=== PATIENT | female | born 1975 ===

== ENCOUNTER 2017-01-10 09:29 | Emergency (ER) | payer OTHER ==
[2017-01-10 09:35] VITALS: O2SAT 99; BMI 27.4
[2017-01-10 11:02] LABS: BASO % 0.7 % (0.0-2.0); EOS # 0.1 K/uL (0.0-0.7); EOS % 1.3 % (0.0-4.0); HEMOGLOBIN 12.7 g/dL (12.0-16.0); LYMPH # 2.3 K/uL (1.0-4.3); LYMPH % 33.3 % (20.0-40.0); MEAN CELL VOLUME 77.1 fl (81.0-99.0); MEAN CORPUSCULAR HEMOGLOBIN 25.1 pg (27.0-31.0); MEAN CORPUSCULAR HGB CONC 32.5 g/dL (33.0-37.0); MEAN PLATELET VOLUME 7.6 fl (7.2-11.7); MONO # 0.5 K/uL (0.0-0.8); MONO % 7.5 % (0.0-10.0); NEUT # 3.9 K/uL (1.8-7.0); NEUT % 57.2 % (50.0-75.0); NRBC % 0.1 % (0.0-0.0); RBC 5.08 Mil/uL (3.80-5.20); RED CELL DISTRIBUTION WIDTH 18.6 % (11.5-14.5); WHITE BLOOD COUNT 6.9 K/uL (4.8-10.8)
--- NOTE | 2017-01-10 11:17 | ED PDOC ---
HPI: Female Pain Time Seen by Provider: 01/10/17 10:06 Chief Complaint (Nursing): Female Genitourinary Chief Complaint (Provider): Right abdominal pain History Per: Patient History/Exam Limitations: no limitations Onset/Duration Of Symptoms: Days (x 3 days) Current Symptoms Are (Timing): Still Present Additional Complaint(s): Massiel Cerna is a 41-year-old female with a past medical history of hypertension and hysterectomy, who presents to the emergency department complaining of right-sided abdominal pain radiating to the back associated with dysuria, ongoing x3 days. Patient's is concerned she may have appendicitis after he "did research on the internet". Denies nausea, vomiting, diarrhea, and fever. PMD: Kris Leon MD Past Medical History Reviewed: Historical Data, Nursing Documentation, Vital Signs Vital Signs: Last Vital Signs Temp 97 F L 01/10/17 09:34 Pulse 71 01/10/17 09:34 Resp BP 144/77 01/10/17 09:34 Pulse Ox 99 01/10/17 09:34 - Medical History PMH: HTN - Surgical History Other surgeries: Hysterectomy - Family History Family History: States: Unknown Family Hx - Social History Current smoker - smoking cessation education provided: No Alcohol: None Drugs: Denies - Home Medications Home Medications: Ambulatory Orders Medication Instructions Recorded oxyCODONE/Acetaminophen [Percocet 1 tab PO Q6 PRN #8 tab 01/10/17 5/325 mg Tab] traMADol [Ultram] 50 mg PO TID PRN #12 tab 01/10/17 - Allergies Allergies/Adverse Reactions: Allergies Allergy/AdvReac Type Severity Reaction Status Date / Time No Known Allergies Allergy Verified 01/10/17 10:16 Review of Systems ROS Statement: Except As Marked, All Systems Reviewed And Found Negative Constitutional: Negative for: Fever Gastrointestinal: Positive for: Abdominal Pain (Right-sided pain radiating to the posterior back). Negative for: Nausea, Vomiting, Diarrhea Genitourinary Female: Positive for: Dysuria Musculoskeletal: Positive for: Back Pain Physical Exam - Reviewed Nursing Documentation Reviewed: Yes Vital Signs Reviewed: Yes - Physical Exam Appears: Positive for: Well, Non-toxic, No Acute Distress Head Exam: Positive for: ATRAUMATIC, NORMAL INSPECTION, NORMOCEPHALIC Skin: Positive for: Normal Color, Warm, Dry Eye Exam: Positive for: EOMI, Normal appearance, PERRL Neck: Positive for: Normal, Painless ROM, Supple Cardiovascular/Chest: Positive for: Regular Rate, Rhythm. Negative for: Murmur Respiratory: Positive for: Normal Breath Sounds. Negative for: Accessory Muscle Use, Respiratory Distress Gastrointestinal/Abdominal: Positive for: Soft, Tenderness (To the right lower quadrant), Other (old laparoscopic surgical scars ). Negative for: Normal Exam Neurologic/Psych: Positive for: Alert, Oriented - Laboratory Results Result Diagrams: 01/10/17 10:57 01/10/17 10:57 - ECG O2 Sat by Pulse Oximetry: 99 (RA) Pulse Ox Interpretation: Normal Medical Decision Making Medical Decision Making: Time: 10:45 Initial impression: Abdominal pain, UTI/pyelonephritis vs atypical appendicitis Initial plan: ---CMP ---Lipase ---CBC ---Urine culture ---Urinalysis ---CT abdomen/pelvis IV contrast ---Reassessment Time: 13:20 --CT Abdomen/Pelvis IV Contrast FINDINGS: LOWER THORAX: There is dependent atelectasis in the lung bases. LIVER: The liver is normal in size and there is homogeneous enhancement with diffuse low-attenuation. No intra hepatic biliary ductal dilatation. There is a 14 mm low-attenuation lesion in the anterior left hepatic lobe. GALLBLADDER AND BILE DUCTS: There are no calcified gallstones. PANCREAS: The pancreas is normal in size and there is homogeneous enhancement without focal mass or ductal dilatation. SPLEEN: Normal in size without focal lesion. ADRENALS: Both adrenal glands are normal in size without discrete nodule. KIDNEYS AND URETERS: Both kidneys are normal in size and there is homogeneous enhancement without hydronephrosis or focal mass. VASCULATURE: Normal in appearance. No aortic aneurysm. BOWEL: The small bowel loops are normal in caliber. There is large amount of stool in the colon. No evidence of bowel dilatation or obstruction. APPENDIX: Normal appendix. PERITONEUM: No free fluid. No free air. LYMPH NODES: No enlarged lymph nodes. BLADDER: Unremarkable. REPRODUCTIVE: The uterus is surgically absent. There is a 5.0 x 5.6 cm septated cyst in the right ovary. BONES: No acute fracture. OTHER FINDINGS: None. IMPRESSION: 1. 5.0 x 5.6 cm septated cyst in the right ovary. 2. Hepatic steatosis and 14 mm cystic lesion in the anterior left hepatic lobe which could represent a hemangioma or complicated cyst, however neoplasm is not entirely excluded. A dedicated right upper quadrant ultrasound is recommended for further evaluation. 3. Constipation. No evidence of bowel obstruction. Time: 14:02 --Abdomen Limited (US) --Pelvis/Transvag US Time: 16:26 --Abdomen US FINDINGS: LIVER: Measures 13.5 cm in length. There is mild diffuse increased echogenicity of the liver parenchyma. There is a 14 x 12 x 14 mm well-circumscribed round hypoechoic lesion in the anterior left hepatic lobe. There is no central flow on color Doppler imaging. . No intrahepatic bile duct dilatation. GALLBLADDER: Unremarkable. No gallstones. COMMON BILE DUCT: Measures 3.1 mm. No stones. No dilatation. PANCREAS: Unremarkable as visualized. No mass. No ductal dilatation. RIGHT KIDNEY: Measures 11.9 cm in length. Normal echogenicity. No calculus, mass, or hydronephrosis. AORTA: No aneurysmal dilatation. IVC: Unremarkable. OTHER FINDINGS: None . IMPRESSION: 1. Hepatic steatosis. 2. 14 mm rounded lesion in the left hepatic lobe which does not demonstrate sonographic features of hemangioma or simple cyst. Finding could represent an adenoma or focal nodular hyperplasia. A CT/ MRI of the liver without and with intravenous contrast with liver protocol would be the imaging modality of choice for definitive characterization. Time: 16:31 --Pelvic US FINDINGS: UTERUS: Status post partial hysterectomy. CERVIX: No cervical abnormality identified. RIGHT OVARY: Enlarged and measures 7.5 x 4.3 x 6.3 cm. No solid mass. Normal flow. There is a 6.3 x 3.8 x 4.8 cm cyst in the right ovary. No central flow on color Doppler imaging. LEFT OVARY: Measures 2.7 x 1.7 x 2.3 cm. No solid mass. Normal flow. FREE FLUID: No significant free fluid noted. OTHER FINDINGS: None. IMPRESSION: 6.3 cm simple cyst in the right ovary. Follow-up ultrasound in 3-6 months interval is recommended to assess stability/ resolution. Time: 16:43 Upon provider reevaluation patient is feeling better, is medically stable, and requires no further treatment in the ED at this time. Patient will be discharged home with Rx for Percocet 5/325 mg and Tramadol 50 mg. Counseling was provided and all questions were answered regarding diagnosis and need for follow up with Dr. Juan Reyes MD and Dr. Juventino Gaspar MD. There is agreement to discharge plan. Return if symptoms persist or worsen. Clinical Impression: Ovarian Cyst and Liver lesion Scribe Attestation: Documented by Ro Peacock, acting as a scribe for Juventino Cano MD. Provider Scribe Attestation: All medical record entries made by the Scribe were at my direction and personally dictated by me. I have reviewed the chart and agree that the record accurately reflects my personal performance of the history, physical exam, medical decision making, and the department course for this patient. I have also personally directed, reviewed, and agree with the discharge instructions and disposition. Disposition - Clinical Impression Clinical Impression: Ovarian cyst, Liver lesion Counseled Patient/Family Regarding: Diagnosis, Need For Followup, Rx Given - Disposition Referrals: Juan Reyes MD [Staff Provider] - Juventino Gaspar MD, PhD [Staff Provider] - Disposition: Routine/Home Disposition Time: 16:43 Condition: STABLE Additional Instructions: See Dr Reyes for further testing on your ovarian cyst. You may need surgery for this. Return to ER for any worse or new symptoms. See PMD or GI specialist for testing on liver cyst, you will need a dedicated scan of the liver to rule-out more serious pathology. Bring this to your PMD: Accession No. : [id number] Patient Name / ID : JOHN SANFORD / [id number] Exam Date : 01/10/2017 15:34:20 ( Approved ) Study Comment : Sex / Age : F / 41Y Creator : Radha Kamara MD Dictator : Radha Kamara MD Transmission Tester : Mechanical Maintenance Technician : Radha Kamara MD Approver2 : Report Date : 01/10/2017 16:26:31 My Comment : HISTORY: lesion on CT in liver COMPARISON: CT abdomen performed the same day. TECHNIQUE: Grayscale imaging was performed. FINDINGS: LIVER: Measures 13.5 cm in length. There is mild diffuse increased echogenicity of the liver parenchyma. There is a 14 x 12 x 14 mm well-circumscribed round hypoechoic lesion in the anterior left hepatic lobe. There is no central flow on color Doppler imaging. . No intrahepatic bile duct dilatation. GALLBLADDER: Unremarkable. No gallstones. COMMON BILE DUCT: Measures 3.1 mm. No stones. No dilatation. PANCREAS: Unremarkable as visualized. No mass. No ductal dilatation. RIGHT KIDNEY: Measures 11.9 cm in length. Normal echogenicity. No calculus, mass, or hydronephrosis. AORTA: No aneurysmal dilatation. IVC: Unremarkable. OTHER FINDINGS: None . IMPRESSION: 1. Hepatic steatosis. 2. 14 mm rounded lesion in the left hepatic lobe which does not demonstrate sonographic features of hemangioma or simple cyst. Finding could represent an adenoma or focal nodular hyperplasia. A CT/ MRI of the liver without and with intravenous contrast with liver protocol would be the imaging modality of choice for definitive characterization. Prescriptions: oxyCODONE/Acetaminophen [Percocet 5/325 mg Tab] 1 tab PO Q6 PRN #8 tab PRN Reason: Pain, Severe (8-10) traMADol [Ultram] 50 mg PO TID PRN #12 tab PRN Reason: Pain, Moderate (4-7) Instructions: Ovarian Cyst (ED) Forms: [employer] ([place]ian)
[2017-01-10 11:32] LABS: ALB/GLOB RATIO 1.2 (1.0-2.1); ALBUMIN 4.1 g/dL (3.5-5.0); ALT/SGPT 42 U/L (9-52); AST/SGOT 24 U/L (14-36); BLOOD UREA NITROGEN 14 mg/dl (7-17); GFR AFRICAN-AMERICAN > 60; GFR NON-AFRICAN AMERICAN > 60; LIPASE 59 U/L (23-300)
[2017-01-10 12:03] LABS: SQUAMOUS EPITHIAL 4 /hpf (0-5); URINE BACTERIA RARE (<OCC); URINE BILIRUBIN NEGATIVE (NEGATIVE); URINE BLOOD NEGATIVE (NEGATIVE); URINE CLARITY CLEAR (Clear); URINE COLOR YELLOW (YELLOW); URINE GLUCOSE (UA) NEG (Normal); URINE LEUKOCYTE ESTERASE NEG Leu/uL (Negative); URINE NITRATE NEGATIVE (NEGATIVE); URINE PROTEIN NEGATIVE (NEGATIVE); URINE UROBILINOGEN 0.2-1.0 mg/dL (0.2-1.0)
[2017-01-10] MEDS ORDERED: Iohexol 300 100 ML IJ ONE (12:49)
[2017-01-10] MEDS ORDERED: Sodium Chloride 0.9% 50 ML IV ONE (12:49)
--- NOTE | 2017-01-10 13:55 | CT ---
PROCEDURE: CT Abdomen and Pelvis with contrast HISTORY: RLQ pain COMPARISON: None. TECHNIQUE: CT scan of the abdomen and pelvis was performed after intravenous administration of contrast. Oral contrast was not administered. Coronal and sagittal reformatted images were obtained. Contrast dose: 95 mL Omnipaque 300 Radiation dose: Total exam DLP = 666.91 mGy-cm. This CT exam was performed using one or more of the following dose reduction techniques: Automated exposure control, adjustment of the mA and/or kV according to patient size, and/or use of iterative reconstruction technique. FINDINGS: LOWER THORAX: There is dependent atelectasis in the lung bases. LIVER: The liver is normal in size and there is homogeneous enhancement with diffuse low-attenuation. No intra hepatic biliary ductal dilatation. There is a 14 mm low-attenuation lesion in the anterior left hepatic lobe. GALLBLADDER AND BILE DUCTS: There are no calcified gallstones. PANCREAS: The pancreas is normal in size and there is homogeneous enhancement without focal mass or ductal dilatation. SPLEEN: Normal in size without focal lesion. ADRENALS: Both adrenal glands are normal in size without discrete nodule. KIDNEYS AND URETERS: Both kidneys are normal in size and there is homogeneous enhancement without hydronephrosis or focal mass. VASCULATURE: Normal in appearance. No aortic aneurysm. BOWEL: The small bowel loops are normal in caliber. There is large amount of stool in the colon. No evidence of bowel dilatation or obstruction. APPENDIX: Normal appendix. PERITONEUM: No free fluid. No free air. LYMPH NODES: No enlarged lymph nodes. BLADDER: Unremarkable. REPRODUCTIVE: The uterus is surgically absent. There is a 5.0 x 5.6 cm septated cyst in the right ovary. BONES: No acute fracture. OTHER FINDINGS: None. IMPRESSION: 1. 5.0 x 5.6 cm septated cyst in the right ovary. 2. Hepatic steatosis and 14 mm cystic lesion in the anterior left hepatic lobe which could represent a hemangioma or complicated cyst, however neoplasm is not entirely excluded. A dedicated right upper quadrant ultrasound is recommended for further evaluation. 3. Constipation. No evidence of bowel obstruction.
--- NOTE | 2017-01-10 16:27 | US ---
HISTORY: lesion on CT in liver COMPARISON: CT abdomen performed the same day. TECHNIQUE: Grayscale imaging was performed. FINDINGS: LIVER: Measures 13.5 cm in length. There is mild diffuse increased echogenicity of the liver parenchyma. There is a 14 x 12 x 14 mm well-circumscribed round hypoechoic lesion in the anterior left hepatic lobe. There is no central flow on color Doppler imaging. . No intrahepatic bile duct dilatation. GALLBLADDER: Unremarkable. No gallstones. COMMON BILE DUCT: Measures 3.1 mm. No stones. No dilatation. PANCREAS: Unremarkable as visualized. No mass. No ductal dilatation. RIGHT KIDNEY: Measures 11.9 cm in length. Normal echogenicity. No calculus, mass, or hydronephrosis. AORTA: No aneurysmal dilatation. IVC: Unremarkable. OTHER FINDINGS: None . IMPRESSION: 1. Hepatic steatosis. 2. 14 mm rounded lesion in the left hepatic lobe which does not demonstrate sonographic features of hemangioma or simple cyst. Finding could represent an adenoma or focal nodular hyperplasia. A CT/ MRI of the liver without and with intravenous contrast with liver protocol would be the imaging modality of choice for definitive characterization.
--- NOTE | 2017-01-10 16:33 | US ---
HISTORY: R ovarian cyst r/o torsion COMPARISON: None available. TECHNIQUE: Transabdominal pelvic ultrasound was performed. FINDINGS: UTERUS: Status post partial hysterectomy. CERVIX: No cervical abnormality identified. RIGHT OVARY: Enlarged and measures 7.5 x 4.3 x 6.3 cm. No solid mass. Normal flow. There is a 6.3 x 3.8 x 4.8 cm cyst in the right ovary. No central flow on color Doppler imaging. LEFT OVARY: Measures 2.7 x 1.7 x 2.3 cm. No solid mass. Normal flow. FREE FLUID: No significant free fluid noted. OTHER FINDINGS: None. IMPRESSION: 6.3 cm simple cyst in the right ovary. Follow-up ultrasound in 3-6 months interval is recommended to assess stability/ resolution.
[2017-01-10 17:19] VITALS: BP 130/78; PULSE 70; RESP 18; TEMP 98.2
== END 2017-01-10 17:20 | disposition home or self-care (01) ==
LOC: H.ER 09:29
DX: N83.201 Unspecified ovarian cyst, right side (principal); K76.0 Fatty (change of) liver, not elsewhere classified

== ENCOUNTER 2017-01-14 11:03 | Observation (INO) | payer OTHER ==
[2017-01-14] MEDS ORDERED: Sodium Chloride 0.9% 1,000 ML IV STA (11:13)
--- NOTE | 2017-01-14 11:17 | ED PDOC ---
HPI: General Adult Time Seen by Provider: 01/14/17 11:12 History Per: Patient Additional Complaint(s): Referred by PMD outpt w/u revealed ovarian cyst. For OR to assess cyst. C/o pelvic pain Past Medical History Vital Signs: Last Vital Signs Temp 98.8 F 01/14/17 11:12 Pulse 75 01/14/17 11:12 Resp 19 01/14/17 11:12 BP 128/86 01/14/17 11:12 Pulse Ox 98 01/14/17 11:12 - Medical History PMH: HTN - Family History Family History: States: Unknown Family Hx - Home Medications Home Medications: Ambulatory Orders Medication Instructions Recorded oxyCODONE/Acetaminophen [Percocet 1 tab PO Q6 PRN #8 tab 01/10/17 5/325 mg Tab] traMADol [Ultram] 50 mg PO TID PRN #12 tab 01/10/17 - Allergies Allergies/Adverse Reactions: Allergies Allergy/AdvReac Type Severity Reaction Status Date / Time No Known Allergies Allergy Verified 01/10/17 10:16 Review of Systems Constitutional: Negative for: Fever Gastrointestinal: Positive for: Abdominal Pain Genitourinary Female: Positive for: Pelvic Pain Physical Exam - Physical Exam Appears: Positive for: Non-toxic, No Acute Distress Skin: Positive for: Normal Color, Warm, DRY Cardiovascular/Chest: Positive for: Regular Rate, Rhythm Respiratory: Positive for: CNT, Normal Breath Sounds Gastrointestinal/Abdominal: Positive for: Bowel Sounds, Soft, Tenderness Extremity: Positive for: Normal ROM - ECG O2 Sat by Pulse Oximetry: 98 Disposition - Clinical Impression Clinical Impression: Ovarian cyst - Patient ED Disposition Is Patient to be Admitted: Yes - Disposition Disposition Time: 11:17 Condition: FAIR - Pt Status Changed To: Hospital Disposition Of: Observation - POA Present On Arrival: None
[2017-01-14 11:53] LABS: BASO % 0.5 % (0.0-2.0); EOS # 0.1 K/uL (0.0-0.7); EOS % 1.1 % (0.0-4.0); HEMOGLOBIN 13.1 g/dL (12.0-16.0); LYMPH # 2.2 K/uL (1.0-4.3); LYMPH % 28.2 % (20.0-40.0); MEAN CORPUSCULAR HGB CONC 32.4 g/dL (33.0-37.0); MONO # 0.6 K/uL (0.0-0.8); NEUT # 4.7 K/uL (1.8-7.0); NEUT % 62.2 % (50.0-75.0); RBC 5.24 Mil/uL (3.80-5.20); RED CELL DISTRIBUTION WIDTH 18.2 % (11.5-14.5); WHITE BLOOD COUNT 7.6 K/uL (4.8-10.8)
[2017-01-14 12:05] LABS: ALB/GLOB RATIO 1.2 (1.0-2.1); ALBUMIN 4.1 g/dL (3.5-5.0); ALT/SGPT 41 U/L (9-52); AST/SGOT 26 U/L (14-36); BLOOD UREA NITROGEN 10 mg/dl (7-17); GFR AFRICAN-AMERICAN > 60; GFR NON-AFRICAN AMERICAN > 60
[2017-01-14 12:21] LABS: PROTHROMBIN TIME 11.4 Seconds (9.8-13.1)
--- NOTE | 2017-01-14 12:42 | RAD ---
HISTORY: preop COMPARISON: No prior. TECHNIQUE: Chest PA and lateral FINDINGS: LUNGS: There is mild pulmonary hyperinflation. No focal consolidation. PLEURA: No significant pleural effusion identified. No pneumothorax apparent. CARDIOVASCULAR: Normal. OSSEOUS STRUCTURES: No significant abnormalities. VISUALIZED UPPER ABDOMEN: Normal. OTHER FINDINGS: None. IMPRESSION: No active pulmonary disease.
[2017-01-14] MEDS ORDERED: Neostigmine Methylsulfate 2 MG/2 ML ML IV ONE (14:32)
[2017-01-14] MEDS ORDERED: Propofol 10 mg/ml Inj (20 ML) ONE (14:32)
[2017-01-14] MEDS ORDERED: Succinylcholine 200 mg/10 ml Inj IV ONE (14:32)
[2017-01-14] MEDS ORDERED: Rocuronium 10 mg/ml (5 ml) ONE (14:32)
[2017-01-14] MEDS ORDERED: Bupivacaine 0.5% Inj(30mL) ONE (14:53)
[2017-01-14] MEDS ORDERED: Sodium Chloride 0.9% 1,000 ML IV ONE (15:00)
[2017-01-14] MEDS ORDERED: Oxycodone/Acetaminophen 5/325 mg Tab PO ONE (16:33)
[2017-01-14] MEDS ORDERED: Lactated Ringer's 1,000 ML IV ONE (16:33)
[2017-01-14] MEDS ORDERED: Lactated Ringer's 1,000 ML IV SCH (16:37)
[2017-01-14] MEDS ORDERED: HYDROmorphone 0.5 mg/0.5 ml ISec IVP PRN (16:37)
[2017-01-14] MEDS ORDERED: Dexamethasone 4 mg/1 ml IVP PRN (16:37)
[2017-01-15 11:52] VITALS: RESP 18
[2017-01-15 11:56] VITALS: BP 148/88; PULSE 79; TEMP 98; O2SAT 98
--- NOTE | 2017-01-15 13:50 | CARD ---
APPROVED REPORT EKG Measurement Heart [id number] <Conclusion> Normal sinus rhythm Normal ECG
--- NOTE | 2017-01-15 15:55 | OP ---
PROCEDURE DATE: 01/14/2017 PREOPERATIVE DIAGNOSES: Abdominal pain and right ovarian cyst. POSTOPERATIVE DIAGNOSES: Abdominal pain and right ovarian cyst with torsion of the right ovary. OPERATION PERFORMED: Right oophorectomy. SURGEON: Dr. Juan Reyes. RESEARCH AND DEVELOPMENT DIRECTOR: Dr. Maddy Woodall. TYPE OF ANESTHESIA: General. ANESTHESIA ADMINISTERED BY: Dr. Clark ESTIMATED BLOOD LOSS: Minimal. URINE OUTPUT: Guerra catheter put out approximately 100 mL of clear urine. The patient received 1400 mL of D5 LR intraoperatively. OPERATIVE FINDINGS: Uterus was absent. There was normal left ovary, right ovary was approximately 7 cm in size and torsed. Photographs were taken for documentation. RESEARCH AND DEVELOPMENT DIRECTOR: Dr. Woodall was the respiratory equipment assistant for the procedure. She was instrumental in the care of the patient. She was helpful in obtaining hemostasis, creating exposure, and closure of the patient. The procedure would not have been possible without her assistance. DESCRIPTION OF PROCEDURE: After informed consent was obtained, the patient was taken to the operating room, where she was given general anesthesia. She was then prepped and draped in the usual sterile fashion. Attention was then turned to the vagina. A sponge stick was placed in the vagina as a means to manipulate the vaginal cuff. A Guerra catheter was inserted to the patient's bladder to monitor her urinary output. Attention was then turned to the umbilicus where a 5 mm incision was made after the infusion of Marcaine. The abdomen was then tented upward and a Veress needle was inserted into the abdominal cavity. The abdomen was then insufflated to 15 mmHg. The Veress needle was removed and a 5 mm Trocar was inserted in the abdominal cavity and placement was confirmed with the laparoscope. Attention was then turned to approximately 15 cm less than lateral to the umbilicus. Skin was infused with Marcaine. A 10 mm incision was made and a 10 mm port was introduced into the abdominal cavity. The abdomen was surveyed with the findings noted above. There was a right 7 to 8 cm cyst that had torsed. We then proceed to identify the right infundibulopelvic ligament and the ureter was clearly visible inferiorly. We serially coagulated the IP ligament and then transected it. The ovary was then bagged in an Endo bag and extracted through the 10 mm port site. Specimen was sent to pathology. Hemostasis was noted. The abdomen was irrigated. The irrigate was removed with a suction device. All instruments were then removed from the abdomen. The 10 mm incision was closed with 0-Vicryl on a UR needle. The 5 mm port site was closed with Dermabond. All sponge, lap, needle, and instrument counts were correct x10. The patient was taken to the recovery room in awake and stable condition. Juan Reyes MD MTDAnthony
== END 2017-01-14 20:21 | disposition home or self-care (01) ==
LOC: H.ER 11:03 → INTOOBSV 11:13 → H.ERHOLD 11:13 → H.TEL 14:19
PROVIDERS: ADMIT Obstetrics & Gynecology Gynecology; ATTEND Obstetrics & Gynecology Gynecology
DX: N83.201 Unspecified ovarian cyst, right side (principal); N83.511 Torsion of right ovary and ovarian pedicle; I10 Essential (primary) hypertension